=== PATIENT | male | born 1935 | race Caucasian/White ===

== ENCOUNTER 2017-03-20 09:59 | Outpatient (CLI) | payer MEDICARE, OTHER ==
[2017-03-20 10:39] LABS: #Basophils 0.1 thou/uL (0.0-0.2); #Eosinphils 2.2 thou/uL (0.0-0.7); #Lymphocytes 2.1 thou/uL (1.20-3.40); #Monocytes 1.1 thou/uL (0.11-0.59); #Neutrophils 3.4 thou/uL (1.40-6.50); %Basophils 1.6 % (0.0-1.0); %Eosinophils 24.7 % (0.0-10.0); %Monocytes 12.6 % (0.0-10.0); %Neutrophils 38.1 % (42.0-75.0); Hemoglobin 12.6 g/dL (14.0-18.0); Mean Corpuscular HGB CONC 33.2 g/dL (32.0-36.0); Mean Corpuscular Hemoglobin 32.4 pg (27.0-31.0); Mean Corpuscular Volume 97.6 fl (80.0-94.0); Mean Platelet Volume 8.1 fL (7.4-10.4); Platelet Count 286 thou/uL (130-400); Red Blood Cell (RBC) Count 3.88 mill/uL (4.70-6.10); White Blood Cell (WBC) Count 8.9 thou/uL (4.8-10.8)
[2017-03-20 10:47] LABS: ALT (SGPT) 17 U/L (8-55); AST (SGOT) 23 U/L (5-34); Albumin 4.1 g/dL (3.4-4.8); Alkaline Phosphatase 44 U/L (40-150); Anion Gap 15 mmol/L (10-20); BUN (Urea Nitrogen) 9 mg/dL (8.4-25.7); Bilirubin, Direct 0.2 mg/dL (0.1-0.3); Bilirubin, Total 0.5 mg/dL (0.2-1.2); Calc. Creatinine Clearance 0 mL/min (70-130); Carbon Dioxide 21 mmol/L (23-31); Cardiac Risk 1.7 (Less than 4.5); Chloride 94 mmol/L (98-107); Cholesterol 145 mg/dl (< 200 Desired); Estimated GFR-MDRD 90; Glucose 105 mg/dL (83-110); HDL Cholesterol 84 mg/dL (>60 Neg Risk); LDL Cholesterol, Calculated 50 mg/dL; Potassium 5.3 mmol/L (3.5-5.1); Protein, Total 7.3 g/dL (5.8-8.1); Sodium 125 mmol/L (136-145); Triglycerides 53 mg/dL (Less than 150)
== END 2017-03-20 10:00 | disposition home or self-care (01) ==
LOC: MADLABBHPM 09:59
PROVIDERS: ATTEND Family Medicine
DX: E78.5 Hyperlipidemia, unspecified (principal); I10 Essential (primary) hypertension; E87.1 Hypo-osmolality and hyponatremia
CPT/HCPCS: 36415; 80048; 80061; 80076; 85025

== ENCOUNTER 2018-06-09 12:15 | Outpatient (CLI) | payer MEDICARE ==
[2018-06-09 13:02] LABS: Anion Gap 17 mmol/L (10-20); BUN (Urea Nitrogen) 7 mg/dL (8.4-25.7); Calc. Creatinine Clearance 0 mL/min (70-130); Calcium 8.7 mg/dL (7.8-10.44); Carbon Dioxide 19 mmol/L (23-31); Chloride 96 mmol/L (98-107); Estimated GFR-MDRD Greater than 90; Glucose 114 mg/dL (83-110); Potassium 4.7 mmol/L (3.5-5.1); Sodium 127 mmol/L (136-145)
== END 2018-06-09 12:16 | disposition home or self-care (01) ==
LOC: MADLABBHPM 12:15
PROVIDERS: ATTEND Family Medicine
DX: I10 Essential (primary) hypertension (principal)
CPT/HCPCS: 36415; 80048

== ENCOUNTER 2020-01-26 06:42 | Emergency (ER) | payer MEDICARE ==
[~2020-01-26 06:42] MED LIST: Sodium Chloride 0.9% 1,000 ML BAG ONE
--- NOTE | 2020-01-26 07:22 | RAD ---
Exam: Chest one view HISTORY:Chest pain Comparison: 08/22/2006, 09/18/2012 FINDINGS: Cardiac silhouette: Normal Aorta: Atherosclerosis of the aortic knob Pulmonary vessels: Normal Costophrenic angles: Bilateral pleural effusions, right greater than left LUNGS: Bibasilar parenchymal changes. Lungs are hyperinflated. Pneumothorax: None Osseous abnormalities: None IMPRESSION: 1. Atherosclerosis 2. Bibasilar pleural and parenchymal changes. Continued surveillance to ensure resolution.
[2020-01-26 07:38] LABS: ALT (SGPT) 12 U/L (8-55); AST (SGOT) 21 U/L (5-34); Albumin 4.1 g/dL (3.4-4.8); Alkaline Phosphatase 57 U/L (40-110); Anion Gap 18 mmol/L (10-20); BUN (Urea Nitrogen) 11 mg/dL (8.4-25.7); Bilirubin, Total 0.6 mg/dL (0.2-1.2); Calc. Creatinine Clearance 0 mL/min (70-130); Calcium 9.1 mg/dL (7.8-10.44); Carbon Dioxide 19 mmol/L (23-31); Chloride 97 mmol/L (98-107); Estimated GFR-MDRD 88; Globulin 4.5 g/dL (2.4-3.5); Glucose 123 mg/dL (83-110); Potassium 4.7 mmol/L (3.5-5.1); Protein, Total 8.6 g/dL (5.8-8.1); Sodium 129 mmol/L (136-145)
[2020-01-26] MEDS ORDERED: Nitroglycerin 2% Ointment 1 INCH/1 GM Packet ONE (07:47)
[2020-01-26] MEDS ORDERED: Aspirin Chewable 81 MG TAB ONE (07:47)
[2020-01-26 07:52] LABS: Red Blood Cell (RBC) Count 4.29 mill/uL (4.70-6.10); White Blood Cell (WBC) Count 12.2 thou/uL (4.8-10.8)
[2020-01-26 07:53] LABS: Band 1 % (5-11); Eosinophils 8 % (0-10); Lymphocytes 20 % (21-51); MDiff Complete? YES; Manual Diff?? YES; Mean Corpuscular Hemoglobin 27.8 pg (27.0-31.0); Mean Corpuscular Volume 92.7 fL (78.0-98.0); Mean Platelet Volume 8.3 fL (7.4-10.4); Monocytes 5 % (0-10); Neutrophil 67 % (42-75); Platelet Count 413 thou/uL (130-400); RBC Distribution Width 13.2 % (11.5-14.5)
[2020-01-26 07:54] LABS: Anisocytosis SLIGHT = 6-15 cells (100X) (0-5/hpf)
[2020-01-26 07:55] LABS: Hemoglobin 11.9 g/dL (14.0-18.0); Platelet Morphology Comment Appears Increased
[2020-01-26] MEDS ORDERED: Lidocaine Viscous Sol 2% 15 ml UD Cup ONE (08:23)
[2020-01-26] MEDS ORDERED: Morphine 4 MG/ML VIAL ONE (08:23)
[2020-01-26] MEDS ORDERED: Milk Of Magnesia 30 ML UDCUP ONE (08:23)
[2020-01-26 08:59] LABS: Prothrombin Time 12.6 SEC (12.0-14.7)
[2020-01-26 09:00] LABS: INR-International Normal Ratio 0.9; PTT 29.1 SEC (22.9-36.1)
[2020-01-26] MEDS ORDERED: Enoxaparin Sodium 60 MG/0.6 ML SYRINGE ONE (09:07)
== END 2020-01-26 09:50 | disposition short-term general hospital (02) ==
LOC: MADERS 06:42
DX: R07.9 Chest pain, unspecified (principal); I25.2 Old myocardial infarction; I10 Essential (primary) hypertension; J44.9 Chronic obstructive pulmonary disease, unspecified; F17.220 Nicotine dependence, chewing tobacco, uncomplicated; F17.210 Nicotine dependence, cigarettes, uncomplicated; Z79.82 Long term (current) use of aspirin; Z79.899 Other long term (current) drug therapy
CPT/HCPCS: 71045; 80053; 83690; 84484; 85025; 85379; 85610; 85730; 93005; 94760; 96361; 96372; 96374; J1650; J2270; J7050

== ENCOUNTER 2020-02-02 10:48 | Emergency (ER) | payer MEDICARE ==
[2020-02-02] MEDS ORDERED: Iopamidol 370 76% 125 ML VIAL FS ONE (11:40)
[2020-02-02 11:55] LABS: ALT (SGPT) 9 U/L (8-55); AST (SGOT) 14 U/L (5-34); Albumin 3.8 g/dL (3.4-4.8); Alkaline Phosphatase 56 U/L (40-110); Anion Gap 18 mmol/L (10-20); BUN (Urea Nitrogen) 10 mg/dL (8.4-25.7); Bilirubin, Total 0.7 mg/dL (0.2-1.2); Calc. Creatinine Clearance 0 mL/min (70-130); Calcium 8.7 mg/dL (7.8-10.44); Carbon Dioxide 20 mmol/L (23-31); Chloride 98 mmol/L (98-107); Estimated GFR-MDRD Greater than 90; Globulin 3.5 g/dL (2.4-3.5); Glucose 120 mg/dL (83-110); Protein, Total 7.3 g/dL (5.8-8.1); Sodium 132 mmol/L (136-145)
[2020-02-02 11:58] LABS: Hemoglobin 11.3 g/dL (14.0-18.0); Mean Corpuscular HGB CONC 30.3 g/dL (32.0-36.0); Mean Corpuscular Hemoglobin 28.5 pg (27.0-31.0); Mean Corpuscular Volume 94.1 fL (78.0-98.0); Platelet Count 463 thou/uL (130-400); RBC Distribution Width 13.9 % (11.5-14.5); Red Blood Cell (RBC) Count 3.98 mill/uL (4.70-6.10); White Blood Cell (WBC) Count 16.6 thou/uL (4.8-10.8)
[2020-02-02 11:59] LABS: Prothrombin Time 13.3 SEC (12.0-14.7)
[2020-02-02] MEDS ORDERED: Famotidine In NaCl 20 mg/50 ml Premix Bag ONE (12:02)
[2020-02-02] MEDS ORDERED: methylPREDNISolone Sod Succ/PF 125 MG/2 ML VIAL ONE (12:02)
[2020-02-02] MEDS ORDERED: diphenhydrAMINE 50 MG/ML VIAL ONE (12:02)
[2020-02-02] MEDS ORDERED: Sodium Chloride 0.9% 500 ML ONE (12:02)
[2020-02-02 12:04] LABS: Bilirubin Negative (Negative); Blood, Urine Negative (Negative); Clarity Clear (Clear); Glucose, Urine (Dipstick) Negative (Negative); Leukocyte Negative (Negative); Nitrite Negative (Negative); Protein, Urine (Dipstick) 100 mg/dL (Neg-Trace); Urobilinogen 0.2 mg/dL (Less than 2)
[2020-02-02 12:08] LABS: CK (CPK) 34 U/L (30-200)
[2020-02-02 12:11] LABS: Band 2 % (5-11); Eosinophils 24 % (0-10); Lymphocytes 16 % (21-51); MDiff Complete? YES; Manual Diff?? YES; Monocytes 4 % (0-10); Neutrophil 54 % (42-75)
[2020-02-02 12:12] LABS: Anisocytosis SLIGHT = 6-15 cells (100X) (0-5/hpf); Platelet Morphology Comment Appears Increased
[2020-02-02 12:13] LABS: Amphetamine Not Detected (NotDetected); Barbiturates Screen Not Detected (NotDetected); Benzodiazepine Screen Not Detected (NotDetected); Cocaine Metabolite Screen Not Detected (NotDetected); Medtox Control Line Valid? VALID (VALID); Methadone Not Detected (NotDetected); Methamphetamine Not Detected (NotDetected); Opiate Screen Not Detected (NotDetected); Oxycodone Screen Not Detected (NotDetected); Phencyclidine (PCP) Not Detected (NotDetected); THC/Cannabinoid Screen Not Detected (NotDetected); Tricyclic Screen Not Detected (NotDetected)
[2020-02-02 12:15] LABS: Bacteria/HPF Rare-Few HPF (None Seen); RBC/HPF 0-3 HPF (0-3); Squamous Epithelial 0-3 HPF (0-3); WBC/HPF 0-3 HPF (0-3)
--- NOTE | 2020-02-02 12:39 | CT ---
Exam: Head CT without contrast HISTORY: Left facial droop this morning. Possible stroke. COMPARISON: none FINDINGS: Hemorrhage: No intraparenchymal hemorrhage or extra-axial hematoma. Brain parenchyma: Cortical bhatia-white matter differentiation is preserved. No mass effect or midline shift. Basilar cisterns are patent.Chronic small vessel ischemic changes of the white matter. Ventricular system: Ventricles and sulci are patent and symmetric. Calvarium: Intact. Sinuses and mastoid air cells: Adequate aeration. IMPRESSION: No acute intracranial process. Results of study discussed with Dr. Andres on 02/02/2020 at 12:36 PM code CR
[2020-02-02] MEDS ORDERED: Aspirin Chewable 81 MG TAB ONE (13:08)
--- NOTE | 2020-02-02 13:14 | RAD ---
Exam: Chest one view HISTORY:Chest pain. CVA workup. Comparison: 01/26/2020 FINDINGS: Cardiac silhouette: Normal Aorta: Atherosclerosis. Pulmonary vessels: Normal Costophrenic angles: Blunting of the visualized costophrenic angles, less evident than the previous e xam. LUNGS: Patchy interstitial opacities. Pneumothorax: None Osseous abnormalities: None IMPRESSION: Improved but persistent bibasilar pleural and parenchymal changes.
--- NOTE | 2020-02-02 13:24 | CT ---
EXAM: CT ANGIOGRAM OF THE HEAD AND NECK: INDICATION: Stroke. COMPARISON: None. TECHNIQUE: CT angiogram of the head and neck are performed in the axial plane. Three-dimensional reformatted ameya ges are submitted for interpretation. FINDINGS: CTA OF THE HEAD WITH AND WITHOUT CONTRAST: POSTCONTRAST CT OF BRAIN: Pathologic enhancement: No pathologic enhancement the brain. Postcontrast soft tissue neck CT: Sinuses: Adequate aeration. Orbits: Bilateral ocular lens implant are appropriately located. Both globes are intact. Retrobulbar fat is preserved. Symmetric attenuation the optic nerves and ocular rectus muscles. Salivary glands:Symmetric attenuation. Thyroid gland: Unremarkable. Lymph nodes: No evidence of lymphadenopathy by size criteria. Paraspinal muscles: Symmetric attenuation of the sternocleidomastoid muscles. Appropriate attenuation of the paraspinal muscles. Cervical spine:Vertebral body height is maintained. No fracture. No significant central canal stenosi s or significant neural foraminal narrowing. Limited evaluation by technique. Upper mediastinum and lung apices: Enlarged mediastinal lymph nodes. Dolphin [employer]er enlarged lymph no de measures 1.2 x 0.9 cm and 1.2 x 1.2 cm. There is an incompletely interrogated mass in the cervical esophagus. Chronic lung parenchymal changes. Right-sided pleural effusion. CTA OF THE NECK WITH CONTRAST: Aorta: Appropriate enhancement and luminal diameter. Right carotid artery: Appropriate enhancement and luminal diameter of the right carotid artery origin . The common carotid artery demonstrates a component of mild intimal thickening. There is calcified and noncalcified plaque in the distal common carotid artery and carotid bifurcation. There is mild in timal thickening involving the internal carotid artery. No significant stenosis based upon NASCET criteria. Left carotid: Left carotid artery origin demonstrates atherosclerosis. There is mild narrowing. Mild intimal thickening throughout the common carotid artery. There is calcified and noncalcified plaque in the distal common carotid artery and carotid bifurcation. No significant stenosis based upon NASCE T criteria. There is nonspecific mild intimal thickening of the internal carotid artery. Subclavian arteries:Atherosclerotic disease. Patent and symmetric. Vertebral arteries:Patent throughout their course in the neck. Scattered foci of calcified plaque. Sl ightly prominent left vertebral artery. CTA OF THE BRAIN: Intracranial internal carotid arteries:Atherosclerosis involving both cavernous segments. Anterior circulation: Symmetric enhancement and luminal diameter of the M1 segments and A1 segments. Symmetric enhancement and luminal diameter the proximal A2 segments and proximal MCA branches. Intracranial vertebral arteries: Atherosclerotic disease. No significant stenosis. Bilateral PICA art jessica origins are unremarkable. Posterior circulation: Both vertebral arteries supply a normal caliber basilar artery. Bilateral P1 s egments have appropriate enhancement and luminal diameter. IMPRESSION: 1. Based upon NASCET criteria, no hemodynamically significant stenosis, occlusion or aneurysmal forma tion. 2. Based on lymphadenopathy with a soft tissue mass in the proximal thoracic esophagus, incompletely evaluated. 3. Results of study discussed with Dr. Andres 02/02/2020 1:21 PM. CODE CR Transcribed Date/Time: 02/02/2020 1:31 PM
[2020-02-02] MEDS ORDERED: Azithromycin 500 MG VIAL ONE (14:13)
[2020-02-02] MEDS ORDERED: Sodium Chloride 0.9% 250 ML 250 ML ONE (14:13)
[2020-02-02] MEDS ORDERED: cefTRIAXone\\ROCEPHIN 2 GM VIAL ONE (14:13)
[2020-02-02] MEDS ORDERED: Sodium Chloride 0.9% 100 ML ONE (14:13)
== END 2020-02-02 15:55 | disposition left against medical advice (07) ==
LOC: MADERS 10:48
DX: R47.81 Slurred speech (principal); I25.2 Old myocardial infarction; R53.1 Weakness; D47.3 Essential (hemorrhagic) thrombocythemia; D64.9 Anemia, unspecified; E87.1 Hypo-osmolality and hyponatremia; I10 Essential (primary) hypertension; E86.0 Dehydration; D72.829 Elevated white blood cell count, unspecified; J44.9 Chronic obstructive pulmonary disease, unspecified; F17.220 Nicotine dependence, chewing tobacco, uncomplicated; Z79.82 Long term (current) use of aspirin; Z79.899 Other long term (current) drug therapy
CPT/HCPCS: 70450; 70496; 70498; 71045; 80053; 80306; 81003; 81015; 82550; 83605; 84484; 85025; 85610; 85730; 93005; 96361; 96365; 96367; 96375; J0456; J0696; J1200; J2930; J3490; J7050; Q9967